=== PATIENT | male | born 1995 | race Caucasian/White ===

== ENCOUNTER 2016-12-17 01:49 | Emergency (ER) | payer OTHER ==
[~2016-12-17] VITALS: Ht 172.7 cm; Wt 66.0 kg
[2016-12-17 01:51] VITALS: BP 130/78; PULSE 106; RESP 16; TEMP 97.4; O2SAT 98
--- NOTE | 2016-12-17 02:14 | PD ---
HPI Chief Complaint: Head Injury Time Seen by Provider: 02:10 Travel History International Travel<30 days: No Contact w/Intl Traveler<30days: No Traveled to known affect area: No History of Present Illness HPI 21-year-old male presents emergency department for evaluation of a head injury. He states approximately 20 minute prior to arrival he was pulling on a heavy metal door which was stuck. He states that he getting very hard and it gave way numbing back striking him in the right eyebrow and forehead. He states that he was dazed momentarily but not knocked unconscious. He has had some nausea but no vomiting. No neck or back pain. No numbness, tingling or weakness. Pain is mild. He is not up-to-date with shots. [facility] Past Medical History Medical History: Denies Significant Hx Immunizations Current: Yes Tetanus Vaccination: > 5 Years Influenza Vaccination: No Past Surgical History Surgical History: No Previous Surgery Social History Alcohol Use: Yes ([facility]) Tobacco Use: Yes Substance Use: No Allergies-Medications (Allergen,Severity, Reaction): Coded Allergies: No Known Allergies (Unverified , 12/17/16) Reported Meds & Prescriptions Reported Meds & Active Scripts Active No Active Prescriptions or Reported Medications Review of Systems Except as stated in HPI: all other systems reviewed are Neg Physical Exam Narrative GENERAL: Well-developed, well-nourished in no apparent distress. Nontoxic appearing. HEAD: Patient is a soft tissue hematoma/contusion to the right forehead and eyebrow. There is superficial abrasion. No bony step-off. EYES: Pupils equal round and reactive. Extraocular motions intact. No scleral icterus. No injection or drainage. ENT: Nose clear. Throat without erythema, tonsillar hypertrophy or exudate. Uvula midline. Airway patent. NECK: Trachea midline. Supple, nontender, moves head freely. No central bony tenderness or spasm. CARDIOVASCULAR: Regular rate and rhythm without murmurs, gallops, or rubs. RESPIRATORY: Clear to auscultation. Breath sounds equal bilaterally. No wheezes , rales, or rhonchi. GASTROINTESTINAL: Abdomen soft, non-tender, nondistended. No hepato-splenomegaly , or palpable masses. No guarding. EXTREMITIES: No clubbing, cyanosis, or edema. No joint tenderness. BACK: Nontender without deformity. No flank tenderness. NEUROLOGICAL: Awake, alert and oriented x 3 .Cranial nerves grossly intact. Motor and sensory grossly within normal limits. Normal speech. Data Data Last Documented VS Vital Signs Date Time Temp Pulse Resp B/P Pulse Ox O2 Delivery O2 Flow Rate FiO2 12/17/16 01:51 97.4 106 16 130/[address] Brain W/O Iv Contrast(Rout) (12/17/16 02:10) Tetanus/Diphtheria Tox Adult (Tetanus/Di (12/17/16 02:15) MDM Medical Decision Making Medical Screen Exam Complete: Yes Emergency Medical Condition: Yes Medical Record Reviewed: Yes Interpretation(s) CT brain: Positive soft tissue swelling/hematoma to the right forehead but no acute intracranial injury Differential Diagnosis MDM: High Differential diagnoses: Fracture, sprain, strain, dislocation, contusion, neurovascular injury Narrative Course CT scan is negative for acute intercranial injury. His wound is cleansed and dressed by the nursing staff. This is head contusion, hematoma, avulsion laceration Diagnosis Primary Impression: Head contusion Qualified Code: S05.11XA - Contusion of right orbital tissues, initial encounter Additional Impressions: Hematoma avulsion laceration Patient Instructions: General Instructions Additional Instructions: Rest. Head precautions. Tylenol for pain. Ice packs. Avoid alcohol. Local wound care with soap, water, Neosporin. Avoid all sedating or intoxicating substances. Recheck with your physician within 1-2 days. Return to the ER for any problems. Med/Other Pt SpecificInfo: Wound Care Scripts No Active Prescriptions or Reported Meds Disposition: 01 DISCHARGE HOME Condition: Stable Jorge Johnson Dec 17, 2016 02:14 Jorge Johnson Dec 17, 2016 02:14
[2016-12-17] MEDS ORDERED: TETANUS/DIPHTHERIA TOXOID ADULT 0.5 ML VIAL IM ONE (02:15)
--- NOTE | 2016-12-17 03:07 | RADRPT ---
EXAM DATE/TIME: 12/17/2016 02:17 [place] COMPARISON: No previous studies available for comparison. INDICATIONS : Hit right side of head with door. RADIATION DOSE: 40.77 CTDIvol (mGy) MEDICAL HISTORY : None SURGICAL HISTORY : None. ENCOUNTER: Initial ACUITY: 1 day PAIN SCALE: 5/10 LOCATION: Right cranial TECHNIQUE: Multiple contiguous axial images were obtained of the head. Using automated exposure control and adj ustment of the mA and/or kV according to patient size, radiation dose was kept as low as reasonably a chievable to obtain optimal diagnostic quality images. FINDINGS: CEREBRUM: The ventricles are normal for age. No evidence of midline shift, mass lesion, hemorrhage or acute in farction. No extra-axial fluid collections are seen. POSTERIOR FOSSA: The cerebellum and brainstem are intact. The 4th ventricle is midline. The cerebellopontine angle i s unremarkable. EXTRACRANIAL: The visualized portion of the orbits is intact. Right frontal scalp contusion. SKULL: The calvaria is intact. No evidence of skull fracture. CONCLUSION: Right frontal scalp contusion. No acute intracranial abnormality. Glenn Lomax MD on December 17, 2016 at 3:05 Board Certified Radiologist. This report was verified electronically.
== END 2016-12-17 03:27 | disposition home or self-care (01) ==
LOC: NEPK 01:49
DX: S00.11XA Contusion of right eyelid and periocular area, initial encounter (principal); S00.83XA Contusion of other part of head, initial encounter; W20.8XXA Other cause of strike by thrown, projected or falling object, initial encounter; Y93.89 Activity, other specified; Y92.9 Unspecified place or not applicable; Z72.0 Tobacco use
CPT/HCPCS: 70450